=== PATIENT | male | born 1945 | race Native Hawaiian/Other Pacific Islander ===

== ENCOUNTER 2016-03-20 10:37 | Outpatient (CLI) | payer OTHER ==
[2016-03-20 11:24] LABS: PLATELET COUNT 179 K/uL (142-355)
[2016-03-20 11:35] LABS: POTASSIUM 4.3 mmol/L (3.6-5.2)
== END 2016-03-20 20:11 | disposition home or self-care (01) ==
LOC: LABW 10:37
PROVIDERS: Internal Medicine Cardiovascular Disease
DX: Z79.899 Other long term (current) drug therapy (principal); E78.4 Other hyperlipidemia; Z51.81 Encounter for therapeutic drug level monitoring
CPT/HCPCS: 36415; 80048; 80061; 80076; 85027

== ENCOUNTER 2016-09-03 16:05 | Outpatient (CLI) | payer OTHER ==
[2016-09-03 16:32] LABS: PLATELET COUNT 195 K/uL (142-355)
[2016-09-03 16:37] LABS: POTASSIUM 4.2 mmol/L (3.6-5.2)
== END 2016-09-03 19:40 | disposition home or self-care (01) ==
LOC: LABW 16:05
PROVIDERS: Internal Medicine
DX: I25.10 Atherosclerotic heart disease of native coronary artery without angina pectoris (principal); R31.9 Hematuria, unspecified; R82.99 Other abnormal findings in urine
CPT/HCPCS: 36415; 80053; 80061; 81000; 82043; 82570; 84153; 84443; 85027; 87086; 87088

== ENCOUNTER 2019-07-29 07:55 | Outpatient (CLI) | payer OTHER | END 2019-07-29 19:06 | disposition home or self-care (01) | LOC: LAB 07:55 | DX: Z20.828 Contact with and (suspected) exposure to other viral communicable diseases (principal) | CPT/HCPCS: 87635; G2023; U0002 ==

== ENCOUNTER 2020-05-03 16:18 | Outpatient (CLI) | payer OTHER | END 2020-05-03 22:24 | disposition home or self-care (01) | LOC: RAD 16:18 | PROVIDERS: ATTEND Nurse Practitioner Family | DX: M25.511 Pain in right shoulder (principal); M25.512 Pain in left shoulder; M75.51 Bursitis of right shoulder; M75.52 Bursitis of left shoulder ==

== ENCOUNTER → 2020-07-09 | Outpatient (CLI) | payer OTHER | LOC: RAD 18:08 | PROVIDERS: ATTEND Nurse Practitioner Family | DX: M25.552 Pain in left hip (principal) ==

== ENCOUNTER 2020-11-29 10:39 | Outpatient (CLI) | payer OTHER ==
[2020-11-29 11:24] LABS: PLATELET COUNT 186 K/uL (142-355)
== END 2020-11-29 20:06 | disposition home or self-care (01) ==
LOC: LABW 10:39
PROVIDERS: ATTEND Internal Medicine Cardiovascular Disease
DX: Z79.899 Other long term (current) drug therapy (principal)
CPT/HCPCS: 36415; 80053; 80061; 85027

== ENCOUNTER 2021-10-05 13:25 | Outpatient (CLI) | payer OTHER | END 2021-10-05 19:11 | disposition home or self-care (01) | LOC: RAD 13:25 | PROVIDERS: ATTEND Nurse Practitioner Family | DX: M19.011 Primary osteoarthritis, right shoulder (principal) ==

== ENCOUNTER 2022-10-12 07:46 | Outpatient (CLI) | payer OTHER ==
[2022-10-12 09:30] LABS: PLATELET COUNT 175 K/uL (142-355)
[2022-10-12 09:44] LABS: POTASSIUM 3.9 mmol/L (3.6-5.2)
== END 2022-10-12 23:01 | disposition home or self-care (01) ==
LOC: LABW 07:46
PROVIDERS: ATTEND Internal Medicine Cardiovascular Disease
DX: Z79.899 Other long term (current) drug therapy (principal); E78.49 Other hyperlipidemia; D64.9 Anemia, unspecified
CPT/HCPCS: 36415; 80053; 80061; 83540; 83550; 85027